=== PATIENT | male | born 1990 | race African-American/Black ===

== ENCOUNTER → 2018-07-31 | Outpatient (CLI) | payer OTHER ==
--- NOTE | 2018-07-31 09:39 | REP ---
LEFT KNEE, FIVE VIEWS: HISTORY: Knee pain. There is no acute fracture or dislocation. The joint spaces are normal in appearance. IMPRESSION: There is no acute fracture or dislocation. Electronically Signed by Jose L Desir MD 07/31/2018 09:47 A
== END ==
LOC: M RAD 08:52
PROVIDERS: ATTEND Surgery
DX: M25.562 Pain in left knee (principal)